=== PATIENT | male | born 1980 | race Caucasian/White ===

== ENCOUNTER 2018-02-19 13:13 | Emergency (ER) | payer BC, OTHER ==
[2018-02-19 13:34] VITALS: BP 157/71
[2018-02-19] MEDS ORDERED: NORMAL SALINE 1000 ML 1,000 ML IV PRN (15:43)
[2018-02-19] MEDS ORDERED: ONDANSETRON HCL INJ/PF 4 MG/2 ML SDV IV ONE (15:43)
--- NOTE | 2018-02-19 15:44 | ER Document Report ---
ED Medical Screen (RME) - General Chief Complaint: Nausea/Vomiting/Diarrhea Stated Complaint: VOMITING,DIARRHEA Time Seen by Provider: 02/19/18 15:39 Mode of Arrival: Ambulatory Information source: Patient Notes: This is a 37-year-old male who presents to the emergency room with nausea, vomiting, diarrhea since early this morning. Patient states that he ate [place] food last night. He states he woke up this morning with the symptoms and is not been able to tolerate food all day. - HPI Onset: Just prior to arrival Onset/Duration: Sudden Quality of pain: Cramping Severity: None Pain Level: Denies Associated Symptoms: Nausea, Vomiting. denies: Chest pain, Shortness of breath Exacerbated by: Denies Relieved by: Denies Similar symptoms previously: No Recently seen / treated by doctor: No - Related Data Smoking: Non-smoker Frequency of alcohol use: None Drug Abuse: None Allergies/Adverse Reactions: prednisone [Prednisone] Allergy (Unknown, Verified 12/24/11 12:01) Past Medical History - General Information source: Patient - Social History Cigarette use (# per day): No Chew tobacco use (# tins/day): No Frequency of alcohol use: Social Drug Abuse: Marijuana Lives with: Family Family history: None - Medical History Medical History: Negative Renal/ Medical History: Denies: Hx Peritoneal Dialysis Past Surgical History: Reports: Hx Appendectomy - Immunizations Hx Diphtheria, Pertussis, Tetanus Vaccination: Yes Review of Systems - Review of Systems Constitutional: denies: Chills, Fever EENT: No symptoms reported Cardiovascular: No symptoms reported Respiratory: No symptoms reported Gastrointestinal: See HPI Genitourinary: No symptoms reported Male Genitourinary: No symptoms reported Musculoskeletal: No symptoms reported Skin: No symptoms reported Hematologic/Lymphatic: No symptoms reported Neurological/Psychological: No symptoms reported Physical Exam - Vital signs Vitals: Temp Pulse Resp BP Pulse Ox 98.4 F 61 16 157/71 H 97 02/19/18 13:32 02/19/18 13:32 02/19/18 13:32 02/19/18 13:32 02/19/18 13:32 Notes: Physical exam: GENERAL: She is alert and oriented x3, no acute distress. He does complain of nausea. HEAD: Atraumatic, normocephalic. EYES: Pupils equal round and reactive to light, extraocular movements intact, sclera anicteric, conjunctiva are normal. ENT: TMs normal, nares patent, oropharynx clear without exudates. Moist mucous membranes. NECK: Normal range of motion, supple without obvious mass or JVD. LUNGS: Breath sounds clear to auscultation bilaterally and equal. No wheezes rales or rhonchi. HEART: Regular rate and rhythm without murmurs, rubs or gallops. ABDOMEN: Soft, normoactive bowel sounds. No tenderness to palpation. No guarding, no rebound. No masses appreciated. EXTREMITIES: Normal range of motion, no pitting or edema. No clubbing or cyanosis. NEUROLOGICAL: Cranial nerves II through XII grossly intact. Normal speech, moving all extremities. PSYCH: Normal mood, normal affect. SKIN: Warm, Dry, normal turgor, no rashes or lesions noted. Course - Re-evaluation Re-evalutation: 02/19/18 17:48 On reassessment, patient tolerating fluids. Discomfort much improved after IV fluids and antiemetics. Discussed the mildly elevated glucose with the patient. He has had this before and will follow up with a primary care doctor. I have given him the contacts for 3 primary care doctors affiliated with this hospital. - Vital Signs Vital signs: Temp Pulse Resp BP Pulse Ox 98.4 F 61 16 157/71 H 97 02/19/18 13:32 02/19/18 13:32 02/19/18 13:32 02/19/18 13:32 02/19/18 13:32 - Laboratory Result Diagrams: 02/19/18 15:50 02/19/18 15:50 Laboratory results interpreted by me: 02/19/18 02/19/18 15:50 15:50 WBC 10.8 H Seg Neutrophils % 89.0 H Lymphocytes % 8.5 L Monocytes % 2.1 L Absolute Neutrophils 9.6 H Glucose 124 H Doctor's Discharge - Discharge Clinical Impression: Vomiting with nausea Condition: Stable Disposition: HOME, SELF-CARE Instructions: Vomiting ([facility]) Additional Instructions: Take the nausea medicine as needed: 1 tablet every 6 hours. Drink plenty of fluids and advance her diet slowly. I would follow-up with a doctor: I left the name of some doctors affiliated with this hospital below. Return to the emergency room for any worsening vomiting or abdominal pain. Keep in mind that your sugar today was borderline high and should be followed in the future. Below are the number for 3 primary care doctors affiliated with this hospital. Dr. Vikas Nugent [address], [place] [address] [phone] Dr Guadarrama Address: [address] [place] [address] , [place] [address] Dr Tristan Address: [address] [place] [address] , [place] [address]
[2018-02-19 16:16] LABS: ABSOLUTE LYMPHOCYTES (AUTO) 0.9 10^3/uL (0.5-4.7); ABSOLUTE MONOCYTES (AUTO) 0.2 10^3/uL (0.1-1.4); ABSOLUTE NEUT (AUTO) 9.6 10^3/uL (1.7-8.2); BASOPHILS % (AUTO) 0.4 % (0-2); HEMATOCRIT 44.2 % (37.9-51.0); HEMOGLOBIN 15.3 g/dL (13.5-17.0); LYMPHOCYTES % (AUTO) 8.5 % (13-45); MEAN CORPUSCULAR HEMOGLOBIN 30.8 pg (27.0-33.4); MEAN CORPUSCULAR HGB CONC 34.6 g/dL (32.0-36.0); MEAN CORPUSCULAR VOLUME 89 fl (80-97); MONOCYTES % (AUTO) 2.1 % (3-13); PLATELET COUNT 310 10^3/uL (150-450); RED BLOOD COUNT 4.95 10^6/uL (4.35-5.55); RED CELL DISTRIBUTION WIDTH 12.7 % (11.5-14.0); TOTAL CELLS COUNTED % (AUTO) 100 %; WHITE BLOOD COUNT 10.8 10^3/uL (4.0-10.5)
[2018-02-19 16:34] LABS: ALANINE AMINOTRANSFERASE 31 U/L (21-72); ALBUMIN 4.7 g/dL (3.5-5.0); ALKALINE PHOSPHATASE 68 U/L (38-126); ANION GAP 14 (5-19); ASPARTATE AMINO TRANSFERASE 33 U/L (17-59); BILIRUBIN,DIRECT 0.2 mg/dL (0.0-0.4); BILIRUBIN,TOTAL 0.7 mg/dL (0.2-1.3); BLOOD UREA NITROGEN 11 mg/dL (7-20); CALCIUM 10.1 mg/dL (8.4-10.2); CARBON DIOXIDE 25 mmol/L (22-30); CHLORIDE 103 mmol/L (98-107); GLUCOSE 124 mg/dL (75-110); LIPASE 137.5 U/L (23-300); POTASSIUM 4.6 mmol/L (3.6-5.0); SODIUM 142.3 mmol/L (137-145); TOTAL PROTEIN 7.6 g/dL (6.3-8.2)
[2018-02-19] MEDS ORDERED: ONDANSETRON ODT 4 MG TAB (6 TAB/ER DISP) PO PRN (17:43)
== END 2018-02-19 19:11 | disposition home or self-care (01) ==
LOC: ER 13:13
DX: R11.2 Nausea with vomiting, unspecified (principal); R19.7 Diarrhea, unspecified
CPT/HCPCS: 99284; 96361; 96374; 36415; 83690; 85025; 80053; J2405; J7030

== ENCOUNTER 2018-12-05 10:36 | Emergency (ER) | payer OTHER ==
[2018-12-05] MEDS ORDERED: DICYCLOMINE HCL INJ 20 MG/2 ML AMPULE IM ONE (11:22)
[2018-12-05] MEDS ORDERED: METOCLOPRAMIDE HCL INJ/PF 10 MG/2 ML SDV IV ONE (11:22)
[2018-12-05] MEDS ORDERED: NORMAL SALINE 1000 ML 1,000 ML IV ONE ×2 (11:22→12:08)
[2018-12-05] MEDS ORDERED: FAMOTIDINE INJ/PF 20 MG/2 ML SDV IV ONE (11:25)
--- NOTE | 2018-12-05 11:25 | ER Document Report ---
ED Medical Screen (RME) - General Chief Complaint: Vomiting Stated Complaint: VOMITING Time Seen by Provider: 12/05/18 11:18 Notes: Patient is a 38-year-old male presents to the emergency department with nausea, vomiting and diarrhea. Patient states that he started to feel bad Tuesday night. Patient states he did go to the urgent care on Tuesday and was given IV fluids and Phenergan. Patient states yesterday he felt better but then this morning when waking up he had an acute onset of abdominal cramping with vomiting and diarrhea. Patient states he is vomited and had diarrhea greater than 10 times. Patient denies blood in the emesis or stool. Patient states he feels like his abdomen is spasming. Patient states he did take his prescription for Zofran that is not helping. Patient denies fever. - Related Data Allergies/Adverse Reactions: prednisone [Prednisone] Allergy (Unknown, Verified 12/24/11 12:01) Past Medical History - Social History Family history: None Renal/ Medical History: Denies: Hx Peritoneal Dialysis Past Surgical History: Reports: Hx Appendectomy - Immunizations Hx Diphtheria, Pertussis, Tetanus Vaccination: Yes Physical Exam - Vital signs Vitals: Temp Pulse BP Pulse Ox 97.4 F 59 L 136/76 H 92 12/05/18 10:42 12/05/18 10:42 12/05/18 10:42 12/05/18 10:42 - Abdominal Inspection: Normal Distension: No distension Bowel sounds: Hyperactive Tenderness: Nontender Organomegaly: No organomegaly Course - Re-evaluation Re-evalutation: 12/05/18 11:24 Patient actively vomited in triage and appears uncomfortable as he cannot find a position of comfort. Will initiate IV fluids, antinausea medication as well as Bentyl for the abdominal spasm. I have greeted and performed a rapid initial assessment of this patient. A comprehensive ED assessment and evaluation of the patient, analysis of test results and completion of the medical decision making process will be conducted by additional ED providers. - Vital Signs Vital signs: Temp Pulse Resp BP Pulse Ox 97.4 F 59 L 136/76 H 92 12/05/18 10:42 12/05/18 10:42 12/05/18 10:42 12/05/18 10:42
[2018-12-05 12:06] LABS: ABSOLUTE BASOPHILS # (AUTO) 0.1 10^3/uL (0.0-0.2); ABSOLUTE LYMPHOCYTES (AUTO) 0.9 10^3/uL (0.5-4.7); ABSOLUTE MONOCYTES (AUTO) 0.3 10^3/uL (0.1-1.4); ABSOLUTE NEUT (AUTO) 8.8 10^3/uL (1.7-8.2); BASOPHILS % (AUTO) 0.6 % (0-2); HEMATOCRIT 39.6 % (37.9-51.0); HEMOGLOBIN 13.7 g/dL (13.5-17.0); LYMPHOCYTES % (AUTO) 8.9 % (13-45); MEAN CORPUSCULAR HEMOGLOBIN 30.2 pg (27.0-33.4); MEAN CORPUSCULAR HGB CONC 34.6 g/dL (32.0-36.0); MEAN CORPUSCULAR VOLUME 87 fl (80-97); MONOCYTES % (AUTO) 3.1 % (3-13); PLATELET COUNT 265 10^3/uL (150-450); RED BLOOD COUNT 4.54 10^6/uL (4.35-5.55); RED CELL DISTRIBUTION WIDTH 12.6 % (11.5-14.0); SEGMENTED NEUTROPHILS % (AUTO) 87.4 % (42-78); TOTAL CELLS COUNTED % (AUTO) 100 %
[2018-12-05] MEDS ORDERED: FENTANYL CITRATE INJ/PF 100 MCG/2 ML AMPUL IV ONE (12:06)
[2018-12-05] MEDS ORDERED: DIPHENHYDRAMINE HCL 50 MG/ML VIAL IV ONE (12:06)
--- NOTE | 2018-12-05 12:09 | ER Document Report ---
ED GI/ - General Chief Complaint: Vomiting Stated Complaint: VOMITING Time Seen by Provider: 12/05/18 11:18 Primary Care Provider: [facility] [Provider Group] - Follow up as needed [facility] [Provider Group] - Follow up as needed Mode of Arrival: Ambulatory Information source: Patient Notes: Patient presents complaining of 3-day history of nausea vomiting diarrhea. Patient states he is vomited and had diarrhea over 10 episodes today. Patient does report occasional diaphoresis. Patient complains of diffuse abdominal pain. No urinary symptoms. Patient denies any blood in emesis or stool. Patient was seen recently and treated with Bentyl and Zofran. Patient states that he vomited the medications. - HPI Patient complains to provider of: Abdominal pain, Diarrhea, Vomiting Onset: Other - 3 days Timing/Duration: Persistent Quality of pain: Sharp Pain Level: 5 Location: Other - Generalized abdomen Sexual history: Active Associated symptoms: Diarrhea, Nausea, Vomiting. 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 denies: Fever EENT: No symptoms reported Cardiovascular: No symptoms reported. denies: Chest pain Respiratory: No symptoms reported. denies: Cough, Short of breath Gastrointestinal: Abdominal pain, Diarrhea, Nausea, Vomiting, Poor fluid intake. denies: Constipation, Rectal bleeding Genitourinary: No symptoms reported. denies: Dysuria, Flank pain Male Genitourinary: No symptoms reported Musculoskeletal: No symptoms reported. denies: Back pain Skin: No symptoms reported Hematologic/Lymphatic: No symptoms reported Neurological/Psychological: No symptoms reported Physical Exam - Vital signs Vitals: Temp Pulse BP Pulse Ox 97.4 F 59 L 136/76 H 92 12/05/18 10:42 12/05/18 10:42 12/05/18 10:42 12/05/18 10:42 - General General appearance: Alert, Anxious In distress: Mild - HEENT Head: Normocephalic, Atraumatic Eyes: Normal Nasal: Normal Mouth/Lips: Normal Mucous membranes: Dry Neck: Normal, Supple. No: Lymphadenopathy - Respiratory Respiratory status: No respiratory distress Chest status: Nontender Breath sounds: Normal. No: Rales, Rhonchi, Stridor, Wheezing Chest palpation: Normal - Cardiovascular Rhythm: Regular Heart sounds: S1 appreciated, S2 appreciated - Abdominal Distension: No distension Tenderness: Tender - Diffuse abdominal tenderness, Guarding Organomegaly: No organomegaly - Back Back: Normal, Nontender. No: CVA tenderness - Extremities General upper extremity: Normal inspection, Normal ROM General lower extremity: Normal inspection, Normal ROM - Neurological Neuro grossly intact: Yes Cognition: Normal Luis Coma Scale Eye Opening: Spontaneous [place] Coma Scale Verbal: Oriented Luis Coma Scale Motor: Obeys Commands Luis Coma Scale Total: 15 - Psychological Associated symptoms: Normal affect, Normal mood - Skin Skin Temperature: Warm Skin Moisture: Dry Skin Color: Normal Course - Re-evaluation Re-evalutation: 12/05/18 12:[address] Sanchez regarding patient presentation and diagnostic evaluation. Agrees with order for imaging with IV contrast only 12/05/18 15:06 Patient's abdomen soft, no guarding. Patient reports nausea is improved as well as diarrhea. Patient has not had any diarrhea bowel movements while here today. Patient given outpatient supplies for stool collection. Patient without any acute findings on CT scan. Patient nontoxic in appearance and diagnostic evaluation otherwise benign. Will treat for likely gastroenteritis at this time. - Vital Signs Vital signs: Temp Pulse Resp BP Pulse Ox 97.4 F 59 L 14 150/84 H 100 12/05/18 10:42 12/05/18 10:42 12/05/18 15:01 12/05/18 15:01 12/05/18 15:01 - Laboratory Result Diagrams: 12/05/18 11:55 12/05/18 11:55 Laboratory results interpreted by me: 12/05/18 12/05/18 11:55 11:55 Seg Neutrophils % 87.4 H Lymphocytes % 8.9 L Absolute Neutrophils 8.8 H Glucose 125 H 12/05/18 15:08 Labs- Entire Visit 12/05/18 12/05/18 12/05/18 11:55 11:55 13:12 WBC 10.0 RBC 4.54 Hgb 13.7 Hct 39.6 MCV 87 MCH 30.2 MCHC 34.6 RDW 12.6 Plt Count 265 Seg Neutrophils % 87.4 H Lymphocytes % 8.9 L Monocytes % 3.1 Eosinophils % 0.0 Basophils % 0.6 Absolute Neutrophils 8.8 H Absolute Lymphocytes 0.9 Absolute Monocytes 0.3 Absolute Eosinophils 0.0 Absolute Basophils 0.1 Sodium 138.8 Potassium 4.2 Chloride 102 Carbon Dioxide 28 Anion Gap 9 BUN 14 Creatinine 0.83 Est GFR ( Amer) > 60 Est GFR (Non-Af Amer) > 60 Glucose 125 H Calcium 9.2 Total Bilirubin 0.3 Direct Bilirubin 0.1 Neonat Total Bilirubin Not Reportable Neonat Direct Bilirubin Not Reportable Neonat Indirect Bili Not Reportable AST 28 ALT 26 Alkaline Phosphatase 63 Total Protein 6.9 Albumin 4.3 Lipase 145.3 Urine Color YELLOW Urine Appearance CLEAR Urine pH 5.0 Ur Specific Marcy 1.046 Urine Protein NEGATIVE Urine Glucose (UA) NEGATIVE Urine Ketones NEGATIVE Urine Blood NEGATIVE Urine Nitrite NEGATIVE Urine Bilirubin NEGATIVE Urine Urobilinogen NEGATIVE Ur Leukocyte Esterase NEGATIVE Urine WBC (Auto) 0 Urine RBC (Auto) 1 Urine Mucus (Auto) RARE Urine Ascorbic Acid NEGATIVE - Diagnostic Test Radiology reviewed: Reports reviewed Discharge - Discharge Clinical Impression: Gastroenteritis, Nausea vomiting and diarrhea Condition: Stable Disposition: HOME, SELF-CARE Additional Instructions: Return immediately for any new or worsening symptoms Followup with your primary care provider, call tomorrow to make a followup appointment VOMITING: Vomiting (or nausea without vomiting) can be caused by many other different problems. It can mean that something's wrong with the stomach, such as ulcers or inflammation or the intestinal tract, such as appendicitis. But it can also be a symptom of a problem that has nothing to do with the stomach or intestines. Vomiting is common with severe headaches, earaches, tonsillitis, and kidney infections, etc. We see it with pneumonia or heart attacks. Drugs can cause nausea and vomiting. Many abdominal problems cause vomiting; for example, gallstones, kidney stones, pancreatitis, and intestinal obstruction (blocked bowels). In most cases, curing the vomiting depends on fixing the problem that caused it. For temporary relief, we may use an anti-nausea medicine. For home use, we can prescribe suppositories, chewable pills, pills that dissolve in the mouth, or liquid anti-nausea drugs. If the vomiting seems to be caused by a prob fara in the stomach, acid-suppressing drugs may be prescribed as well. It's important to avoid dehydration. Sip small amounts of clear liquids (soft drinks, tea, broth, etc) . Try to take fluids frequently even if you are vomiting to prevent dehydration. Take increasing amounts of fluid and when liquids are being consumed successfully, advance to small amounts of bland food (toast, soups, mashed potatoes, etc.) until you are able to resume a regular diet. Avoid aspirin, tobacco, and alcohol. If the vomiting worsens, if the problem that's making you vomit worsens, or if there's evidence of bleeding in the stomach (such as black, tarry stool, or bloody or black vomit), you should return immediately. Also, return if abdominal pain worsens or becomes localized to one area or you develop high fever. Call your doctor if you aren't improved in 24 hours. DIARRHEA, NON-SPECIFIC: Diarrhea means frequent, watery stools. There are many causes. Any problem that keeps the intestinal tract from absorbing water from the stool can lead to diarrhea. A sudden new diarrhea problem is usually caused by a virus, food sensitivity, toxic bacteria, or drugs. In this case, we expect the problem to go away soon. Testing is done only if you seem seriously ill from the diarrhea. If you have chronic diarrhea, or diarrhea that keeps coming back, we need to find out why. Chronic diarrhea can be due to inflammation of the bowels such as Crohn's disease or ulcerative colitis, food sensitivity such as intolerance to lactose or wheat protein, irritable bowel syndrome, and other problems. If your diarrhea is a significant problem but it's not clear why you have it, we'll refer you to a specialist for further testing. During an episode of diarrhea, drink small amounts (two to six ounces) of clear liquids (soft drinks, sport drinks, herb teas, broth, etc). Take fluids f requently to prevent dehydration. It's usually not a problem to take mild anti- diarrhea medication such as Kaopectate or Pepto-Bismol. As the diarrhea eases, advance to small amounts of bland food (mashed potato, toast) for 24 hours. Call the physician if blood appears in your vomit or stool, if vomiting lasts longer than 24 hours, if the abdominal pain worsens or becomes localized to one area, if you develop high fever, or if you become lightheaded and weak. VIRAL SYNDROME: The physician has diagnosed a viral infection. Viruses not only cause "colds," but can cause many different symptoms including generalized aching, fever, headache, cough, diarrhea, nausea, vomiting, and fatigue. The treatment, for the most part, is simply relief of symptoms. This means that antibiotics are usually not given. Rest, fluids, pain medications and, occasionally, medication for the specific symptoms that are most bothersome will be prescribed. Use good handwashing to avoid passing the virus to others. Shared toys should be cleaned with disinfectant. Clean the toilets, sinks, and counter surfaces in bathrooms. Launder clothing in hot water. Contact the physician if you develop any new or unusual symptoms such as severe headache, stiff neck, high fever, chest pain, productive cough, or shortness of breath. You should be rechecked if you don't see marked improvement within seven to 10 days. INTRAVENOUS (I V) FLUIDS: As part of your care today, you received intravenous (IV) fluids. IV fluids are administered to patients who are dehydrated or to those who have cert ain chemical (electrolyte) abnormalities that need correcting. ANTINAUSEA MEDICATION: You have been given a medication to suppress nausea and vomiting. This type of medication can be given as a shot, pill, or suppository. It will usually last for many hours. Pills and shots usually last six to eight hours. For the typical illness, only one or two doses of the medication may be necessary. Mild lightheadedness may occur. This type of medicine can cause drowsiness. Do not drive or operate dangerous machinery while under its influence. Do not mix with alcohol. See your doctor at once if you have muscle spasms or tightness, or uncontrollable motions (particularly of the neck, mouth, or jaw). Persistent vomiting or severe lightheadedness should also be evaluated by the physician. FOLLOW-UP CARE: If you have been referred to a physician for follow-up care, call the [facility] office for an appointment as you were instructed or within the next two days. If you experience worsening or a significant change in your symptoms, notify the physician immediately or return to the Emergency Department at any time for re-evaluation. Forms: Follow-Up Laboratory Testing, Return to Work Referrals: [facility] [Provider Group] - Follow up as needed [facility] [Provider Group] - Follow up as needed
[2018-12-05 12:24] LABS: ALBUMIN 4.3 g/dL (3.5-5.0); ALKALINE PHOSPHATASE 63 U/L (38-126); ANION GAP 9 (5-19); ASPARTATE AMINO TRANSFERASE 28 U/L (17-59); BILIRUBIN,DIRECT 0.1 mg/dL (0.0-0.4); BILIRUBIN,TOTAL 0.3 mg/dL (0.2-1.3); BLOOD UREA NITROGEN 14 mg/dL (7-20); CALCIUM 9.2 mg/dL (8.4-10.2); CARBON DIOXIDE 28 mmol/L (22-30); CHLORIDE 102 mmol/L (98-107); GLUCOSE 125 mg/dL (75-110); POTASSIUM 4.2 mmol/L (3.6-5.0); TOTAL PROTEIN 6.9 g/dL (6.3-8.2)
--- NOTE | 2018-12-05 13:16 | RADIOLOGY REPORT (SQ) ---
EXAM DESCRIPTION: CT ABD/PELVIS WITH IV ONLY COMPLETED DATE/TIME: 12/05/2018 1:01 pm REASON FOR STUDY: diffuse abd pain, +n/v/d COMPARISON: None. TECHNIQUE: CT scan of the abdomen and pelvis performed using helical scanning technique with dynamic intravenous contrast injection. No oral contrast. Images reviewed with lung, soft tissue, and bone windows. Reconstructed coronal and sagittal MPR images reviewed. Delayed images for evaluation of the urinary system also acquired. All images stored on PACS. All CT scanners at this facility use dose modulation, iterative reconstruction, and/or weight based d osing when appropriate to reduce radiation dose to as low as reasonably achievable (ALARA). [facility]: Dose Right [facility]: CareDose [facility]: Dose Right [facility]: Teradose 4D [facility]: VeriShow CONTRAST TYPE AND DOSE: contrast/concentration: Isovue 350.00 mg/ml; Total Contrast Delivered: 100.0 ml; Total Saline Delivered: 72.0 ml RENAL FUNCTION: None required. The patient is less than 50 years old. RADIATION DOSE: CT Rad equipment meets quality standard of care and radiation dose reduction techniq ues were employed. CTDIvol: 8.0 - 9.2 mGy. DLP: 933 mGy-cm.. LIMITATIONS: None. FINDINGS: LOWER CHEST: No significant findings. No nodules or infiltrates. LIVER: Normal size. No masses. No dilated ducts. SPLEEN: Normal size. No focal lesions. PANCREAS: No masses. No significant calcifications. No adjacent inflammation or peripancreatic fluid collections. Pancreatic duct not dilated. GALLBLADDER: No identified stones by CT criteria. No inflammatory changes to suggest cholecystitis. ADRENAL GLANDS: No significant masses or asymmetry. RIGHT KIDNEY AND URETER: No solid masses. No significant calcifications. No hydronephrosis or hyd roureter. LEFT KIDNEY AND URETER: No solid masses. No significant calcifications. No hydronephrosis or hydr oureter. AORTA AND VESSELS: No aneurysm. No dissection. Renal arteries, SMA, celiac without stenosis. RETROPERITONEUM: No retroperitoneal adenopathy, hemorrhage or masses. BOWEL AND PERITONEAL CAVITY: No masses or inflammatory changes. No free fluid or peritoneal masses. Occasional sigmoid diverticula. APPENDIX: Surgically absent. PELVIS: No mass. No free fluid. Normal bladder. ABDOMINAL WALL: No masses. No hernias. BONES: No significant or acute findings. OTHER: No other significant finding. IMPRESSION: No acute CT findings of the abdomen or pelvis to explain abdominal pain. TECHNICAL DOCUMENTATION: JOB ID: [id number] Quality ID # [id number]: Final reports with documentation of one or more dose reduction techniques (e.g., Au tomated exposure control, adjustment of the mA and/or kV according to patient size, use of iterative reconstruction technique) 2010 [employer]- All Rights Reserved Reading location - IP/workstation name: [email or web address]
[2018-12-05 13:54] LABS: APPEARANCE,URINE CLEAR; BILIRUBIN,URINE NEGATIVE (NEGATIVE); COLOR,URINE YELLOW; GLUCOSE, URINE NEGATIVE (NEGATIVE); KETONES,URINE NEGATIVE (NEGATIVE); LEUKOCYTE ESTERASE,URINE NEGATIVE (NEGATIVE); NITRITE,URINE NEGATIVE (NEGATIVE); PROTEIN,URINE NEGATIVE (NEGATIVE); URINE SPECIFIC GRAVITY 1.046; UROBILINOGEN,URINE NEGATIVE mg/dL (<2.0)
[2018-12-05 15:05] VITALS: BP 150/84
== END 2018-12-05 15:40 | disposition home or self-care (01) ==
LOC: ER 10:36
DX: K52.9 Noninfective gastroenteritis and colitis, unspecified (principal); R11.2 Nausea with vomiting, unspecified; R61 Generalized hyperhidrosis; R10.84 Generalized abdominal pain; R10.817 Generalized abdominal tenderness; F12.10 Cannabis abuse, uncomplicated; Z88.8 Allergy status to other drugs, medicaments and biological substances; Z90.49 Acquired absence of other specified parts of digestive tract
CPT/HCPCS: 36415; 83690; 85025; 80053; 81001; 74177; J0500; J1200; J3010; J2765; J7030; S0028; 96361; 96374; 99284

== ENCOUNTER 2019-08-12 13:13 | Emergency (ER) | payer SELFPAY ==
[2019-08-12] MEDS ORDERED: ONDANSETRON HCL INJ/PF 4 MG/2 ML SDV IV ONE (13:21)
[2019-08-12] MEDS ORDERED: NORMAL SALINE 1000 ML 1,000 ML IV ONE ×2 (13:21→15:36)
--- NOTE | 2019-08-12 13:22 | ER Document Report ---
ED Medical Screen (RME) - General Stated Complaint: VOMITING Time Seen by Provider: 08/12/19 13:19 Primary Care Provider: JEN MOSLEY NP [Primary Care Provider] - Follow up as needed Information source: Patient Notes: Patient presents complaining of nausea vomiting diarrhea that started at 4:00 this morning. Patient states that he has broke out into a sweat and was concerned he may have had a fever although did not check a temperature. Patient reports occasional cramping. Patient states he is vomited 8 episodes today and had diarrhea about the same number. Patient does have a previous history of appendectomy as a child. No other underlying medical problems. I have greeted and performed a rapid initial assessment of this patient. A comprehensive ED assessment and evaluation of the patient, analysis of test results and completion of the medical decision making process will be conducted by additional ED providers. - Related Data Allergies/Adverse Reactions: prednisone [Prednisone] Allergy (Unknown, Verified 08/12/19 13:20) Past Medical History - Social History Family history: None Renal/ Medical History: Denies: Hx Peritoneal Dialysis Past Surgical History: Reports: Hx Appendectomy - Immunizations Hx Diphtheria, Pertussis, Tetanus Vaccination: Yes Physical Exam - Abdominal Tenderness: Tender - Generalized abdomen Doctor's Discharge - Discharge Referrals: JEN MOSLEY NP [Primary Care Provider] - Follow up as needed
[2019-08-12] MEDS ORDERED: MORPHINE SULFATE 10 MG/ML INJ IV ONE ×2 (13:57→16:13)
[2019-08-12 14:30] LABS: ABSOLUTE LYMPHOCYTES (AUTO) 0.8 10^3/uL (0.5-4.7); ABSOLUTE MONOCYTES (AUTO) 0.3 10^3/uL (0.1-1.4); ABSOLUTE NEUT (AUTO) 10.2 10^3/uL (1.7-8.2); BASOPHILS % (AUTO) 0.3 % (0-2); EOSINOPHILS % (AUTO) 0.1 % (0-6); HEMATOCRIT 43.2 % (37.9-51.0); LYMPHOCYTES % (AUTO) 6.7 % (13-45); MEAN CORPUSCULAR HEMOGLOBIN 30.4 pg (27.0-33.4); MEAN CORPUSCULAR HGB CONC 34.8 g/dL (32.0-36.0); MEAN CORPUSCULAR VOLUME 87 fl (80-97); MONOCYTES % (AUTO) 2.8 % (3-13); PLATELET COUNT 279 10^3/uL (150-450); RED BLOOD COUNT 4.94 10^6/uL (4.35-5.55); RED CELL DISTRIBUTION WIDTH 12.6 % (11.5-14.0); SEGMENTED NEUTROPHILS % (AUTO) 90.1 % (42-78); TOTAL CELLS COUNTED % (AUTO) 100 %; WHITE BLOOD COUNT 11.3 10^3/uL (4.0-10.5)
[2019-08-12 14:45] LABS: ALBUMIN 4.9 g/dL (3.5-5.0); ALKALINE PHOSPHATASE 76 U/L (38-126); ANION GAP 11 (5-19); ASPARTATE AMINO TRANSFERASE 27 U/L (17-59); BILIRUBIN,TOTAL 0.6 mg/dL (0.2-1.3); BLOOD UREA NITROGEN 16 mg/dL (7-20); CARBON DIOXIDE 27 mmol/L (22-30); CHLORIDE 101 mmol/L (98-107); GLUCOSE 142 mg/dL (75-110); POTASSIUM 4.6 mmol/L (3.6-5.0); TOTAL PROTEIN 7.8 g/dL (6.3-8.2)
--- NOTE | 2019-08-12 15:21 | ER Document Report ---
Entered by JANEL FUCHS SCRIBE 08/12/19 1404 Acting as scribe for:CAMILA RICHARDSON MD ED GI/ - General Chief Complaint: Abdominal Pain Stated Complaint: VOMITING Time Seen by Provider: 08/12/19 13:19 Primary Care Provider: JEN MOSLEY, DRAWING [employer]IL[employer] SUPERVISOR [NURSE PRACTITIONER] - Follow up as needed Mode of Arrival: Ambulatory Information source: Patient Notes: This 39 year old male patient presents to the emergency department today with complaints of diarrhea and vomiting which began today at 4:00 AM. Patient reports that the last time he ate food was 9:00 PM last night. Patient reports that the diarrhea he has been having is watery and brown. Patient complains of associated abdominal cramping as well. 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 Lives with: Family Family History: Reviewed & Not Pertinent Patient has suicidal ideation: No Patient has homicidal ideation: No - Medical History Medical History: Negative Past Surgical History: Reports: Hx Appendectomy - Immunizations Hx Diphtheria, Pertussis, Tetanus Vaccination: Yes Review of Systems - Review of Systems Constitutional: No symptoms reported EENT: No symptoms reported Cardiovascular: No symptoms reported Respiratory: No symptoms reported Gastrointestinal: See HPI, Abdominal pain, Diarrhea, Vomiting Genitourinary: No symptoms reported Male Genitourinary: No symptoms reported Musculoskeletal: No symptoms reported Skin: No symptoms reported Hematologic/Lymphatic: No symptoms reported Neurological/Psychological: No symptoms reported -: Yes All other systems reviewed and negative Physical Exam - Vital signs Vitals: Temp Pulse Resp BP Pulse Ox 97.6 F 63 18 131/81 H 96 08/12/19 13:18 08/12/19 13:18 08/12/19 13:18 08/12/19 13:18 08/12/19 13:18 Interpretation: Normal - General General appearance: Appears well, Alert - HEENT Head: Normocephalic, Atraumatic Eyes: Normal Pupils: PERRL - Respiratory Respiratory status: No respiratory distress Chest status: Nontender Breath sounds: Normal Chest palpation: Normal - Cardiovascular Rhythm: Regular Heart sounds: Normal auscultation Murmur: No - Abdominal Inspection: Other - complains of abdominal cramping Distension: No distension Bowel sounds: Normal Tenderness: Tender - diffusely Organomegaly: No organomegaly - Back Back: Normal, Nontender - Extremities General upper extremity: Normal inspection, Nontender, Normal ROM General lower extremity: Normal inspection, Nontender, Normal ROM - Neurological Neuro grossly intact: Yes Cognition: Normal Orientation: AAOx4 Luis Coma Scale Eye Opening: Spontaneous Luis Coma Scale Verbal: Oriented Luis Coma Scale Motor: Obeys Commands [place] Coma Scale Total: 15 Sensory: Normal - Psychological Associated symptoms: Normal affect, Normal mood - Skin Skin Temperature: Warm Skin Moisture: Dry Skin Color: Normal Course - Vital Signs Vital signs: Temp Pulse Resp BP Pulse Ox 97.6 F 63 14 148/70 H 96 08/12/19 13:23 08/12/19 13:18 08/12/19 17:01 08/12/19 17:01 08/12/19 17:01 - Laboratory Result Diagrams: 08/12/19 14:13 08/12/19 14:13 Laboratory results interpreted by me: 08/12/19 08/12/19 08/12/19 14:13 14:13 14:13 WBC 11.3 H Lymph % (Auto) 6.7 L [place] % (Auto) 2.8 L Absolute Neuts (auto) 10.2 H Seg Neutrophils % 90.1 H Glucose 142 H Creatine Kinase 212 H Urine Protein Urine Ketones Urine Ascorbic Acid 08/12/19 17:50 WBC Lymph % (Auto) [place] % (Auto) Absolute Neuts (auto) Seg Neutrophils % Glucose Creatine Kinase Urine Protein 30 H Urine Ketones 80 H Urine Ascorbic Acid 40 H Discharge - Discharge Clinical Impression: Nausea, vomiting and diarrhea, Abdominal cramping, Dehydration Condition: Stable Disposition: HOME, SELF-CARE Additional Instructions: Gastroenteritis You most likely have gastroenteritis. This is an irritation of the stomach and intestinal tract. It's usually caused by a virus, but can also be caused by bacteria, toxins that cause food poisoning, or excessive alcohol intake. Symptoms may include fever, painful abdominal cramps, nausea, vomiting, and diarrhea. Start with small amounts (two to six ounces) of clear liquids (soft drinks, herb teas, broth, etc). Try to take fluids frequently even if you are vomiting, to prevent dehydration. When liquids are being consumed successfully, advance to small amounts of bland food (mashed potato, toast) for 6 - 12 hours. Gastroenteritis rarely requires medication. It goes away by itself. Use good handwashing so you don't spread germs. Wash underwear in very hot water. If symptoms are severe, talk to the doctor. Call your physician if blood appears in your vomitus or stool, if vomiting lasts longer than 24 hours, if the abdominal pain worsens or becomes localized to one area, or if you develop high fever. Take Zofran as dispensed for nausea if needed. Drink small sips of cool clear liquids throughout the evening tonight. Follow-up with your primary care provider if not improving. RETURN TO THE EMERGENCY ROOM IF ANY NEW OR WORSENING SYMPTOMS. I personally performed the services described in the documentation, reviewed and edited the documentation which was dictated to the scribe in my presence, and it accurately records my words and actions.
[2019-08-12] MEDS ORDERED: METOCLOPRAMIDE HCL INJ/PF 10 MG/2 ML SDV IV ONE (15:50)
--- NOTE | 2019-08-12 17:10 | RADIOLOGY REPORT (SQ) ---
EXAM DESCRIPTION: ACUTE ABDOMEN SERIES IMAGES COMPLETED DATE/TIME: 08/12/2019 4:33 pm REASON FOR STUDY: Nausea vomiting diarrhea abdominal cramps COMPARISON: None. NUMBER OF VIEWS: Three views. TECHNIQUE: Frontal chest, supine abdomen and upright/decubitus abdomen radiographic images acquired. LIMITATIONS: None. FINDINGS: CHEST: Lungs clear of infiltrates. FREE AIR: None. No abnormal gas collections. BOWEL GAS PATTERN: Nonobstructive pattern. No dilated loops or air fluid levels. CALCIFICATIONS: No suspicious calcifications. HARDWARE: None in the abdomen. SOFT TISSUES: No gross mass or suggestion of organomegaly. BONES: No acute fracture. No worrisome bone lesions. OTHER: No other significant finding. IMPRESSION: NO RADIOGRAPHIC EVIDENCE FOR ACUTE ABDOMINAL DISEASE. TECHNICAL DOCUMENTATION: JOB ID: [id number] 2010 [employer]- All Rights Reserved Reading location - IP/workstation name: [email or web address]
[2019-08-12 18:02] LABS: APPEARANCE,URINE CLEAR; BILIRUBIN,URINE NEGATIVE (NEGATIVE); COLOR,URINE YELLOW; GLUCOSE, URINE NEGATIVE (NEGATIVE); KETONES,URINE 80 mg/dL (NEGATIVE); LEUKOCYTE ESTERASE,URINE NEGATIVE (NEGATIVE); NITRITE,URINE NEGATIVE (NEGATIVE); PROTEIN,URINE 30 mg/dL (NEGATIVE); URINE SPECIFIC GRAVITY 1.027; UROBILINOGEN,URINE NEGATIVE mg/dL (<2.0)
[2019-08-12 18:10] LABS: CREATINE KINASE 212 U/L (55-170)
[2019-08-12 18:11] LABS: C-REACTIVE PROTEIN < 5.0 mg/L (<10.0)
[2019-08-12] MEDS ORDERED: DEXTROSE 5%-LACTATED RINGERS 1,000 ML IV ONE (18:11)
[2019-08-12] MEDS ORDERED: ONDANSETRON ODT 4 MG TAB (6 TAB/ER DISP) PO PRN (19:35)
[2019-08-12 20:12] VITALS: BP 116/50
== END 2019-08-12 21:31 | disposition home or self-care (01) ==
LOC: ER 13:13
DX: R11.2 Nausea with vomiting, unspecified (principal); R19.7 Diarrhea, unspecified; R50.9 Fever, unspecified; R10.84 Generalized abdominal pain; E86.0 Dehydration; F17.210 Nicotine dependence, cigarettes, uncomplicated
CPT/HCPCS: 96376; 99284; 96361; 96374; 96375; 36415; 82550; 83690; 85025; 86140; 80053; 81001; 74022; J2765; J2270; J2405; J7121; J7030